=== PATIENT | female | born 1970 | race Caucasian/White ===

== ENCOUNTER 2017-07-25 10:44 | Outpatient (CLI) | payer OTHER ==
[~2017-07-25 10:44] MED LIST: AVAPRO150 MG PO; HYDROCHLOROTH12.5 MG PO
== END 2017-07-25 11:30 | disposition home or self-care (01) ==
LOC: NUCLEAR 10:44
DX: Q62.11 Congenital occlusion of ureteropelvic junction (principal)
CPT/HCPCS: 78708; J1940; A9539

== ENCOUNTER 2017-08-01 07:03 | Outpatient (CLI) | payer OTHER | END 2017-08-01 07:12 | disposition home or self-care (01) | LOC: NUCLEAR 07:03 | DX: M12.9 Arthropathy, unspecified (principal); M19.90 Unspecified osteoarthritis, unspecified site | CPT/HCPCS: 78315; 78306; A9503 ==

== ENCOUNTER 2020-02-19 11:24 | Outpatient (CLI) | payer OTHER | END 2020-02-19 11:36 | disposition home or self-care (01) | LOC: RAD 11:24 | PROVIDERS: ATTEND Orthopaedic Surgery | DX: M25.551 Pain in right hip (principal) ==

== ENCOUNTER → 2020-02-19 | Outpatient (CLI) | payer OTHER | END | disposition home or self-care (01) | LOC: MRI 13:21 | PROVIDERS: ATTEND Orthopaedic Surgery | DX: M25.551 Pain in right hip (principal) | CPT/HCPCS: 73721 ==

== ENCOUNTER 2021-01-27 12:26 | Outpatient (CLI) | payer OTHER | END 2021-01-27 14:21 | disposition home or self-care (01) | LOC: RAD 12:26 | PROVIDERS: ATTEND Urology | DX: N20.0 Calculus of kidney (principal) ==

== ENCOUNTER 2021-02-16 12:38 | Outpatient (CLI) | payer OTHER | END 2021-02-16 12:43 | disposition home or self-care (01) | LOC: NUCLEAR 12:38 | PROVIDERS: ATTEND Urology | DX: Q62.11 Congenital occlusion of ureteropelvic junction (principal) | CPT/HCPCS: 78707; A4641; J1940 ==

== ENCOUNTER 2021-03-01 09:15 | Outpatient (CLI) | payer OTHER | END 2021-03-01 09:20 | disposition home or self-care (01) | LOC: TOM 09:15 | PROVIDERS: ATTEND Urology | DX: K76.0 Fatty (change of) liver, not elsewhere classified (principal); K57.90 Diverticulosis of intestine, part unspecified, without perforation or abscess without bleeding; Q62.11 Congenital occlusion of ureteropelvic junction; M54.5 Low back pain ==

== ENCOUNTER → 2021-09-30 12:49 | Outpatient (CLI) | payer OTHER | END | disposition home or self-care (01) | LOC: NUCLEAR 12:49 | PROVIDERS: ATTEND Internal Medicine Nephrology | DX: N20.0 Calculus of kidney (principal) ==